=== PATIENT | male | born 1970 | race Caucasian/White ===

== ENCOUNTER 2016-10-03 18:25 | Emergency (ER) | payer MEDICAID ==
--- NOTE | 2016-10-03 18:48 | EDPHY ---
H & P Stated Complaint: ABD pain, N/V/D, cough, Flu?, SI, off meds [id number], wants detox off meth Source: Patient - Personal History Current Tetanus Diphtheria and Acellular Pertussis (TDAP): Yes - Medical/Surgical History Hx Asthma: No Hx Chronic Respiratory Disease: No Hx Diabetes: No Hx Cardiac Disease: No Hx Renal Disease: No Hx Cirrhosis: No Hx Alcoholism: No Hx HIV/AIDS: No Hx Splenectomy or Spleen Trauma: No Other PMH: depression, anxiety, ptsd, paranoid schizophrenia. surg - R cheek, cervical discectomy, R knee surg, R 5th finger - Social History Smoking Status: Current every day smoker Time Seen by Provider: 10/03/16 18:47 Constitutional: Initial Vital Signs Temperature (C) 36.9 C 10/03/16 18:40 Heart Rate 97 10/03/16 18:40 Respiratory Rate 18 10/03/16 18:40 Blood Pressure 131/95 H 10/03/16 18:40 O2 Sat (%) 99 10/03/16 18:40 O2 Delivery Mode Room Air Allergies/Adverse Reactions: Sulfa (Sulfonamide Antibiotics) Allergy (Verified 08/24/16 19:18) sulfamethoxazole [From Bactrim] Allergy (Verified 08/24/16 19:18) trimethoprim [From Bactrim] Allergy (Verified 08/24/16 19:18) Home Medications: Medication Instructions Recorded GABAPENTIN 1,800 mg PO BID 08/24/16 Risperdal 750 mg IM 08/24/16 Wellbutrin Sr 600 mg DAILY 08/24/16 Zyprexa 15 mg 08/24/16 Medical Decision Making ED Course/Re-evaluation: CHIEF COMPLAINT: Nausea vomiting diarrhea using methamphetamines suicidal and depressed HISTORY OF PRESENT ILLNESS: 46-year-old gentleman who lives in a [place]. He used methamphetamines yesterday but using them consistently wants to get off meth. He also states that he thinks he has a stomach flu as he has had nausea vomiting diarrhea but he denies any significant abdominal pain. Says he might have some fevers or chills and his heart rate is up a little bit he is not sure if that is from the meth or from the gastrointestinal illness. This patient has been off his psychiatric medicines for 1-2 weeks REVIEW OF SYSTEMS: A 10 point review of systems was performed and is negative with the exception of the elements mentioned in the history of present illness. PHYSICAL EXAM: HR, BP, O2 Sat, RR. Temp noted General Appearance: Alert, well hydrated, appropriate, and non-toxic appearing. Head: Atraumatic without scalp tenderness or obvious injury Eyes: Pupils equal, round, reactive to light and accommodation, EOMI, no trauma , no injection. Ears: Clear bilaterally, no perforation, normal landmarks Nose: Atraumatic, no rhinorrhea, clear. Throat: There is no erythema or exudates, no lesions, normal tonsils, mucus membranes moist. Neck: Supple, 2+ carotid upstroke, nontender, no lymphadenopathy. Respiratory: No retractions, no distress, no wheezes, and no accessory muscle use. Lungs are clear to auscultation bilaterally. Cardiovascular: Regular rate and rhythm, no murmurs, rubs, or gallops. Bilateral carotid, radial, dorsalis pedis, and posterior tibial pulses intact. Good capillary refill all extremities. Gastrointestinal: Abdomen is soft, nontender, non-distended, no masses, no rebound, no guarding, no peritoneal signs. Musculoskeletal: Normal active ROM of all extremities, atraumatic. Neurological: Alert, appropriate, and interactive. The patient has normal DTRs and non-focal cranial nerves, motor, sensory, and cerebellar exam. Skin: No rashes, good turgor, no nodules on palpation. Past medical history: Schizoaffective disorder Past surgical history: Noncontributory Family history: Noncontributory Social history: Homeless, not employed, abuses polysubstance is, uses cigarettes. DIFFERENTIAL DIAGNOSIS: The differential diagnosis for the patient's nausea and vomiting included but was not limited to gastroenteritis, gastritis, appendicitis, and medication side effect. MEDICAL DECISION MAKING: This patient is a methamphetamine addict and he would like help with his addiction. We will give him intravenous fluids and check screening laboratory studies because before he gets help with his addiction he states he is depressed and suicidal so we will have him psychiatrically evaluated. He does not have any significant medical illness outside of a viral syndrome. (Jonatan Kelly) I assumed care of the patient at 0700 pending psychiatric placement. I evaluated the patient personally at 8:00 p.m.. I am informed that the patient reportedly does not have benefits to receive inpatient substance abuse care. I did contact the [facility] in authorization service and spoke with Dr. Thomas who informed me that the patient was not a candidate for inpatient substance abuse treatment. I did request that they consider admitting the patient for a primary psychiatric. I did inform Dr. Thomas that the patient currently is not under the influence of amphetamine clinically or based upon his urinalysis. The patient continues to endorse symptoms of depression as well as suicidal ideation with a plan to overdose via narcotic medication. I did contact [facility] and asked them to re-evaluate the patient as they have not seen him in 24 hours. I have specifically asked them to consider his psychiatric complaints of depression and suicidal ideation independent of his history of substance abuse. The patient reports to me that he is only used amphetamine 3-4 times over the past month. The patient will be turned over to Dr. Sarkis Bryan at 11:00 p.m. (Noe Yeh) 2251: This patient has been placed on M1 hold by myself. This patient has been evaluated by Mental Health. Plan is to place the ATU. He does have a longstanding history of methamphetamine abuse, he is currently suicidal and having worsening depression. 0640: patient signed over to Dr. Rashid Saldana at 7:00 a.m. shift change. Patient is pending placement. 2351: Patient has been evaluated by mental health Faustino evaluated this patient. They will plan to place this patient for inpatient psychiatric hospitalization. 0646 10/05/2016: Patient signed over at 7:[address] Rashid Saldana at shift change. Patient did have an evaluation last night is still stay stating that he is suicidal they are looking for placement. (Sarkis Bryan) Patient's care was transferred to me by Dr. Bryan. At 8:00 a.m. the patient is becoming somewhat more agitated. He has an IV and says he will take some Ativan. He is given 1 mg of Ativan intravenously and 1 mg orally. After the Ativan the patient has been calm. He has been evaluated by mental health and they are looking for placement. At about 8:00 a.m. the patient again is somewhat agitated. He is given a mg of Ativan orally At 9:30 a.m. the patient still seems to be escalating. He is given 10 mg of Zyprexa orally Re-evaluated by me at 10:15 a.m.. The patient would like to leave as he is really not getting help that he had hoped for. He denies to me any suicide ideation or homicide ideation. He says he would like help for his meth use however he will work on it himself as an outpatient. At this point the patient does not seem to be a danger to himself or others. He is not psychotic. He is capable of having a rational discussion and understanding risks and benefits of both of hospitalization and being discharged. I will discontinue the 72 hour hold and the patient will be discharged (Rashid Saldana) Differential Diagnosis: Differential diagnosis considered includes psychosis, substance abuse, depression, suicidal ideation (Noe Yeh) I considered drug and alcohol intoxication as well as withdrawal. Electrolyte abnormalities. (Rashid Saldana) Care Turn Over: Care to Dr. Yeh at 3:00 p.m. (Rashid Saldana) - Data Points Laboratory Results: Laboratory Results 10/03/16 19:15 10/03/16 19:15 Medications Given: Discontinued Medications Sodium Chloride (Ns) 1,000 mls @ 0 mls/hr IV ONCE ONE PRN Reason: Wide Open Stop: 10/03/16 19:08 Last Admin: 10/03/16 19:30 Dose: 1,000 mls Lorazepam (Ativan Injection) 1 mg IVP EDNOW ONE Stop: 10/03/16 19:09 Last Admin: 10/03/16 19:30 Dose: 1 mg Lorazepam (Ativan) 1 mg PO EDNOW ONE Stop: 10/04/16 00:14 Last Admin: 10/04/16 00:14 Dose: 1 mg Lorazepam (Ativan) 1 mg PO EDNOW ONE Stop: 10/04/16 08:07 Last Admin: 10/04/16 08:12 Dose: 1 mg Lorazepam (Ativan Injection) 1 mg IVP EDNOW ONE Stop: 10/04/16 08:07 Last Admin: 10/04/16 08:12 Dose: 1 mg Lorazepam (Ativan) 1 mg PO ONCE ONE Stop: 10/04/16 16:11 Last Admin: 10/04/16 16:12 Dose: 1 mg Lorazepam (Ativan) 1 mg PO ONCE ONE Stop: 10/04/16 22:34 Last Admin: 10/04/16 22:00 Dose: 1 mg Lorazepam (Ativan) 1 mg PO EDNOW ONE Stop: 10/05/16 08:01 Last Admin: 10/05/16 08:06 Dose: 1 mg Miscellaneous Medication (Gi Cocktail) 55 ml PO EDNOW ONE Stop: 10/03/16 19:46 Last Admin: 10/03/16 19:46 Dose: 55 ml Ondansetron HCl (Zofran) 4 mg IVP EDNOW ONE Stop: 10/03/16 19:46 Last Admin: 10/03/16 19:46 Dose: 4 mg Departure - Departure Disposition: Home, Routine, Self-Care Clinical Impression: Gastroenteritis Depression Qualifiers: Depression Type: major depressive disorder Major depression recurrence: recurrent Active/Remission status: currently active Major depression episode severity: moderate Qualifier Code: (F33.1) Major depressive disorder, recurrent , moderate Condition: Good Instructions: Depression (ED) Additional Instructions: Return for further thoughts of hurting herself or others. I will give you the [facility] well as mental [facility] for follow- up and further evaluation Referrals: NONE *PRIMARY CARE P,. [Primary Care Provider] - As per Instructions [facility] [Outside] - As per Instructions [facility] [Outside] - As per Instructions
[2016-10-03] MEDS ORDERED: NS 1,000 ML IV ONE (19:07)
[2016-10-03] MEDS ORDERED: LORazepam 2 MG/ML INJ IVP ONE (19:08)
[2016-10-03] MEDS ORDERED: MAALOX/LIDO/HYOSC GI COCKTAIL 55 ML BOTTLE ONE (19:28)
[2016-10-03] MEDS ORDERED: ONDANSETRON 4 MG/2 ML VIAL ONE (19:31)
[2016-10-03 19:32] LABS: % IMMATURE GRANULYOCYTES 0.3 % (0.0-1.1); ABSOLUTE IMMATURE GRANULOCYTES 0.02 10^3/uL (0.00-0.10); ADD DIFF? NO; ADD MORPH? NO; ADD SCAN? NO; ATYPICAL LYMPHOCYTE FLAG 20 (0-99); FRAGMENT RBC FLAG 0 (0-99); HEMATOCRIT 42.6 % (40.0-51.0); HEMOGLOBIN 15.1 g/dL (13.7-17.5); LEFT SHIFT FLG 0 (0-99); LIPEMIA HEMOLYSIS FLAG 90 (0-99); MEAN CELL HEMOGLOBIN CONCENTR. 35.4 g/dL (32.4-36.7); MEAN CELL VOLUME 84.5 fL (81.5-99.8); MEAN PLATELET VOLUME 8.8 fL (8.7-11.7); PLATELET CLUMPS FLAG 0 (0-99); PLATELET COUNT 324 10^3/uL (150-400); RED BLOOD CELL COUNT 5.04 10^6/uL (4.40-6.38); RED CELL DISTRIBUTION WIDTH 12.6 % (11.5-15.2)
[2016-10-03] MEDS ORDERED: MAALOX/LIDO/HYOSC GI COCKTAIL 55 ML BOTTLE PO ONE (19:45)
[2016-10-03] MEDS ORDERED: ONDANSETRON 4 MG/2 ML VIAL IVP ONE (19:45)
[2016-10-03 19:46] LABS: ANION GAP 13 mEq/L (8-16); CALCIUM 9.5 mg/dL (8.5-10.4); CARBON DIOXIDE 26 mEq/l (22-31); CHLORIDE 102 mEq/L (97-110); CREATININE 1.1 mg/dL (0.7-1.3); ETHANOL SERUM < 10 mg/dL (0-10); GLOMERULAR FILTRATION RATE > 60; GLUCOSE 93 mg/dL (70-100); SALICYLATE < 1.0 mg/dL (2.0-20.0); SODIUM 141 mEq/L (134-144)
[2016-10-04] MEDS ORDERED: LORazepam 1 MG TAB ONE ×4 (00:08→20:08)
[2016-10-04] MEDS ORDERED: LORazepam 1 MG TAB PO ONE ×4 (00:13→22:33)
[2016-10-04] MEDS ORDERED: LORazepam 2 MG/ML INJ IVP ONE (08:06)
[2016-10-04] MEDS ORDERED: LORazepam 2 MG/ML INJ ONE (08:06)
[2016-10-05 07:23] VITALS: BP 108/73; PULSE 102; RESP 18; TEMP 97.9; O2SAT 96
[2016-10-05] MEDS ORDERED: LORazepam 1 MG TAB PO ONE (08:00)
[2016-10-05] MEDS ORDERED: LORazepam 1 MG TAB ONE (08:02)
[2016-10-05] MEDS ORDERED: OLANZapine DISINTEGR 10 MG TAB PO ONE (09:32)
== END 2016-10-05 10:55 | disposition home or self-care (01) ==
LOC: EDUNIT#
DX: K52.9 Noninfective gastroenteritis and colitis, unspecified (principal); F33.1 Major depressive disorder, recurrent, moderate; F17.200 Nicotine dependence, unspecified, uncomplicated
CPT/HCPCS: 80305; 96374; G0480; J2405

== ENCOUNTER 2016-10-05 17:45 | Emergency (ER) | payer MEDICAID ==
--- NOTE | 2016-10-05 19:28 | EDPHY ---
Mental Health General Previous Psychiatric History: previous inpatient psychiatric admission, previous suicide attempt, schizophrenia, substance abuse Smoking Status: Current every day smoker Time Patient Placed on Detainer: 19:25 Time of Transfer of Care: 00:[address] To [address]:: Gokul Course: patient remained stable over course of my shift, no additional interventions <Juana Ortiz - Last Filed: 10/05/16 23:30> <Katharine Luong - Last Filed: 10/06/16 14:41> <Rashid Saldana - Last Filed: 10/07/16 00:03> <Jose Ellis - Last Filed: 10/07/16 06:41> Course: patient required additional meds for sedation (meds) <Kilo Hodgson - Last Filed: 10/07/16 06:53> Narrative: CHIEF COMPLAINT: suicidal ideation HISTORY OF PRESENT ILLNESS: 46-year-old male presents to the emergency department complaining of depression and suicidal ideation. Patient was discharged from the emergency department this morning and his M1 hold was removed by the emergency department provider as the patient was feeling better and wanted to be discharged. He had already been evaluated by [facility] and they were seeking placement. Patient was told to return for worsening symptoms and patient reports his depression has worsened throughout the day. He denies drug use. REVIEW OF SYSTEMS: A comprehensive 10 point review of systems is otherwise negative aside from elements mentioned in the history of present illness. Physical Exam Gen: Alert and Oriented, NAD HEENT: PERRL, moist mucous membranes NECK: no meningismus CV: regular rate and regular rhythm PULM: CTAB, no wheezes ABDOMEN: soft, non tender to palpation, BS present BACK: No CVA tenderness NEURO: Neurologically grossly intact EXTREMITIES: normal appearing SKIN: no rash or break in skin on exposed skin PSYCH: Flat affect, reports suicidal ideations. (Juana Ortiz) I assumed care of this patient at 7:[address] Hodgson. Patient makes no new complaints to me. During my shift patient has undergone evaluation. He is thought appropriate for placement in ATU. He has been placed on a 72 hour mental health hold. An appropriate facility is being sought. His care will be transferred to oncoming physician at 3 PM on 10/06/16. (Katharine Luong) Care assumed 700 with plan for inpatient admission. Schizophrenia and methamphetamine abuse. (Jose Ellis) Medical Decision Makin-year-old male presents with suicidal ideations. He was discharged in the emergency department this morning and his M1 hold was vacated as the patient reported he felt better and wanted to leave. He states he got worse throughout the day and was told to come back to the emergency department for any return of symptoms. He denies drug use. Urine tox is positive for methamphetamines, EPS has been contacted, they will come see him 12 hours from his positive urine tox for re-evaluation which will be at 730 in the morning. 0000-report passed on to at the end of my shift. (Juana Ortiz) Patient has remained stable on my shift. He is on an M1 hold and mental health is looking for placement. Care to Dr. Hodgson at midnight (Rashid Saldana) Care assumed by me from Juana Ortiz pending mental health evaluation this morning. Patient has been using meth. Has a history of schizophrenia and drug abuse. Was seen yesterday in the hold was vacated. Patient returned disabled. He is pending mental health evaluation. 0645 patient signed out to Dr. Luong pending mental health evaluation. 23:30 Care re-assumed by me pending placement. [address] Ellis pending placement. No issues during my care overnight. (Kilo Hodgson) - Objective Vital Signs: Initial Vital Signs Temperature (C) 36.6 C 10/05/16 17:46 Heart Rate 118 H 10/05/16 17:46 Respiratory Rate 18 10/05/16 17:46 Blood Pressure 95/70 L 10/05/16 17:46 O2 Sat (%) 96 10/05/16 17:46 O2 Delivery Mode Room Air Allergies/Adverse Reactions: Sulfa (Sulfonamide Antibiotics) Allergy (Verified 08/24/16 19:18) sulfamethoxazole [From Bactrim] Allergy (Verified 08/24/16 19:18) trimethoprim [From Bactrim] Allergy (Verified 08/24/16 19:18) Home Medications: Medication Instructions Recorded GABAPENTIN 1,800 mg PO BID 08/24/16 Risperdal 750 mg IM 08/24/16 Wellbutrin Sr 600 mg DAILY 08/24/16 Zyprexa 15 mg 08/24/16 Medications Given: Discontinued Medications Acetaminophen (Tylenol) 650 mg PO EDNOW ONE Stop: 10/07/16 06:29 Last Admin: 10/07/16 06:28 Dose: 650 mg Lorazepam (Ativan) 2 mg PO EDNOW ONE Stop: 10/06/16 01:16 Last Admin: 10/06/16 01:17 Dose: 2 mg Lorazepam (Ativan) 1 mg PO EDNOW ONE Stop: 10/06/16 15:22 Last Admin: 10/06/16 15:35 Dose: 1 mg Lorazepam (Ativan) 1 mg PO EDNOW ONE Stop: 10/06/16 19:12 Last Admin: 10/06/16 19:21 Dose: 1 mg Olanzapine (Zyprexa Zydis) 10 mg PO EDNOW ONE Stop: 10/06/16 19:12 Last Admin: 10/06/16 19:21 Dose: 10 mg Laboratory Results: Laboratory Results 10/05/16 20:20 10/05/16 20:20 10/06/16 16:00 Ur Amphetamines Screen > 05262 ng/mL (NEGATIVE) Departure <Juana Ortiz L - Last Filed: 10/05/16 23:30> <Katharine Luong A - Last Filed: 10/06/16 14:41> <Rashid Saldana S - Last Filed: 10/07/16 00:03> <Jose Ellis - Last Filed: 10/07/16 06:41> <Kilo Hodgson - Last Filed: 10/07/16 06:53> - Departure Clinical Impression: Polysubstance abuse, Schizophrenia Condition: Good Referrals: NONE *PRIMARY CARE P,. [Primary Care Provider] - As per Instructions
[2016-10-05 20:39] LABS: % IMMATURE GRANULYOCYTES 0.4 % (0.0-1.1); ABSOLUTE IMMATURE GRANULOCYTES 0.03 10^3/uL (0.00-0.10); ADD DIFF? NO; ADD MORPH? NO; ADD SCAN? NO; ATYPICAL LYMPHOCYTE FLAG 0 (0-99); FRAGMENT RBC FLAG 0 (0-99); HEMOGLOBIN 15.2 g/dL (13.7-17.5); LEFT SHIFT FLG 0 (0-99); LIPEMIA HEMOLYSIS FLAG 90 (0-99); MEAN CELL HEMOGLOBIN 30.2 pg (27.9-34.1); MEAN CELL HEMOGLOBIN CONCENTR. 35.3 g/dL (32.4-36.7); MEAN CELL VOLUME 85.3 fL (81.5-99.8); PLATELET CLUMPS FLAG 0 (0-99); PLATELET COUNT 359 10^3/uL (150-400); RED BLOOD CELL COUNT 5.04 10^6/uL (4.40-6.38); RED CELL DISTRIBUTION WIDTH 12.5 % (11.5-15.2)
[2016-10-05 20:55] LABS: ANION GAP 9 mEq/L (8-16); CALCIUM 9.1 mg/dL (8.5-10.4); CARBON DIOXIDE 28 mEq/l (22-31); CHLORIDE 102 mEq/L (97-110); CREATININE 0.9 mg/dL (0.7-1.3); ETHANOL SERUM < 10 mg/dL (0-10); GLOMERULAR FILTRATION RATE > 60; GLUCOSE 94 mg/dL (70-100); POTASSIUM 4.2 mEq/L (3.5-5.2); SODIUM 139 mEq/L (134-144)
[2016-10-06] MEDS ORDERED: LORazepam 1 MG TAB ONE (01:09)
[2016-10-06] MEDS ORDERED: LORazepam 0.5 MG TAB PO ONE (01:15)
[2016-10-06] MEDS ORDERED: LORazepam 1 MG TAB PO ONE ×2 (15:21→19:11)
[2016-10-06 17:04] LABS: PHENCYCLIDINE URINE BCH < 6 ng/ml (NEGATIVE); TETRAHYDROCANNABINOL URINE < 5 ng/mL (NEGATIVE)
[2016-10-06 17:06] LABS: PHENCYCLIDINE URINE BCH NEGATIVE (NEGATIVE); TETRAHYDROCANNABINOL URINE NEGATIVE (NEGATIVE)
[2016-10-06] MEDS ORDERED: OLANZapine DISINTEGR 10 MG TAB PO ONE (19:11)
[2016-10-07] MEDS ORDERED: ACETAMINOPHEN 325 MG TAB ONE (06:26)
[2016-10-07] MEDS ORDERED: ACETAMINOPHEN 325 MG TAB PO ONE (06:28)
[2016-10-07 08:00] VITALS: TEMP 97.9
[2016-10-07] MEDS ORDERED: LORazepam 1 MG TAB PO ONE ×2 (11:44→19:38)
[2016-10-07] MEDS ORDERED: OLANZapine 2.5 MG TAB PO ONE (15:24)
[2016-10-07] MEDS ORDERED: GABAPENTIN 300 MG CAP PO ONE (16:46)
[2016-10-07] MEDS ORDERED: buPROPion 100 MG TAB PO ONE (16:46)
[2016-10-07] MEDS ORDERED: ACETAMINOPHEN 500 MG TAB ONE (20:11)
[2016-10-07] MEDS ORDERED: ACETAMINOPHEN 500 MG TAB PO ONE (20:19)
[2016-10-07 20:40] VITALS: BP 111/76; PULSE 130; RESP 16; O2SAT 98
== END 2016-10-07 20:39 | disposition home or self-care (01) ==
DX: F20.9 Schizophrenia, unspecified (principal); F19.10 Other psychoactive substance abuse, uncomplicated; F17.200 Nicotine dependence, unspecified, uncomplicated
CPT/HCPCS: 80305; 80307; G0480